=== PATIENT | female | born 1950 | race Caucasian/White ===

== ENCOUNTER 2016-09-22 15:45 | Outpatient (CLI) | payer BC, MEDICARE, OTHER ==
[2014-10-07 06:30] VITALS: O2SAT 98
== END 2016-09-22 15:46 | disposition home or self-care (01) ==
LOC: CONVCARE 15:45
PROVIDERS: ATTEND Orthopaedic Surgery
DX: M25.562 Pain in left knee (principal)
CPT/HCPCS: 73560

== ENCOUNTER 2016-11-04 09:11 | Outpatient (CLI) | payer OTHER ==
[2014-10-07 06:30] VITALS: O2SAT 98
== END 2016-11-04 09:12 | disposition home or self-care (01) ==
LOC: CONVCARE 09:11
PROVIDERS: ATTEND Orthopaedic Surgery
DX: M25.562 Pain in left knee (principal); S83.242A Other tear of medial meniscus, current injury, left knee, initial encounter; M94.262 Chondromalacia, left knee; M25.462 Effusion, left knee; M71.22 Synovial cyst of popliteal space [Baker], left knee
CPT/HCPCS: 73721

== ENCOUNTER 2016-11-10 10:44 | Outpatient (CLI) | payer OTHER ==
[2014-10-07 06:30] VITALS: O2SAT 98
== END 2016-11-10 10:45 | disposition home or self-care (01) ==
LOC: CONVCARE 10:44
PROVIDERS: ATTEND Orthopaedic Surgery
DX: M25.562 Pain in left knee (principal); M17.12 Unilateral primary osteoarthritis, left knee; M25.762 Osteophyte, left knee; M25.462 Effusion, left knee; M71.22 Synovial cyst of popliteal space [Baker], left knee; S83.242D Other tear of medial meniscus, current injury, left knee, subsequent encounter
CPT/HCPCS: 73700